=== PATIENT | male | born 1955 | race Caucasian/White ===

== ENCOUNTER 2017-08-16 13:02 | Day surgery (SDC) | payer MEDICARE, OTHER ==
[2017-08-16] MEDS ORDERED: POLYMYXIN/BACITRACIN 1L IRRIG (14:27)
[2017-08-16] MEDS ORDERED: ONDANSETRON 4 MG INJ IV (15:00)
[2017-08-16] MEDS ORDERED: PROCHLORPERAZINE 10 MG INJ IV (15:00)
[2017-08-16] MEDS ORDERED: FENTAnyl 50 MCG/ML VIAL IV (15:00)
[2017-08-16] MEDS ORDERED: MEPERIDINE 25 MG INJ IV (15:00)
[2017-08-16] MEDS ORDERED: DIPHENHYDRAMINE 50 MG INJ IV (15:00)
[2017-08-16] MEDS ORDERED: BUPIVACAINE 0.5% (SDV) 30 ML INJ (15:23)
[2017-08-16] MEDS ORDERED: MIDAZOLAM 1 MG/ML 2 ML INJ (15:23)
[2017-08-16] MEDS ORDERED: FENTAnyl 50 MCG/ML VIAL (15:24)
[2017-08-16] MEDS ORDERED: LIDOCAINE 2% (SDV) 5 ML INJ (15:36)
[2017-08-16] MEDS ORDERED: PROPOFOL 40 ML (15:36)
[2017-08-16] MEDS ORDERED: LIDOCAINE 1% (MPF) 30 ML INJ (16:03)
[2017-08-16] MEDS: LIDOCAINE 1% (MPF) 30 ML INJ INJ (16:05)
[2017-08-16] MEDS ORDERED: CEFAZOLIN 1 GM INJ (16:05)
[2017-08-16] MEDS: BUPIVACAINE 0.5% 30 ML VIAL INJ (16:05)
[2017-08-16] MEDS ORDERED: PROPOFOL 20 ML (16:05)
[2017-08-16] MEDS: HYDROmorphONE (0.2 MG/ML) 10ML SYG IV (16:31)
== END 2017-08-16 17:32 | disposition home or self-care (01) ==
LOC: SDS 13:02
DX: M86.171 Other acute osteomyelitis, right ankle and foot (principal); E03.9 Hypothyroidism, unspecified
CPT/HCPCS: 11042; 73610-RT; 87070; 88304; 88311